=== PATIENT | female | born 1985 | race Caucasian/White ===

== ENCOUNTER 2019-01-08 12:03 | Emergency (ER) | payer BC ==
[2019-01-08] MEDS ORDERED: Ondansetron 4 MG/2 ML SDV IVPUSH ONE (12:08)
[2019-01-08] MEDS ORDERED: Morphine 2 MG/ML Syringe IVPUSH ONE ×3 (12:08→16:41)
[2019-01-08] MEDS: Sodium Chloride 0.9% 10 ML Syringe FLUSH PRN ×2 (12:18→16:59)
[2019-01-08 12:35] LABS: CHLORIDE,CL 103 mmol/L (98-107); SODIUM,NA 140 mmol/L (136-145)
[2019-01-08] MEDS ORDERED: Diatrizoate Meglumine/Diatrizoate Sodium 37% 30 ML Bottle PO ONE (12:57)
[2019-01-08] MEDS ORDERED: Sodium Chloride 0.9% 250 ML IV SCH (13:15)
[2019-01-08] MEDS ORDERED: Sodium Chloride 0.9% 1,000 ML IV SCH (13:15)
[2019-01-08] MEDS ORDERED: Iopamidol 612 MG/ML 100 ML Bottle IVPUSH ONE (14:00)
--- NOTE | 2019-01-08 15:54 | EDM.PDOC ---
ED HPI GENERAL MEDICAL PROBLEM - General Chief Complaint: Abdominal Pain Stated Complaint: abdominal pain Time Seen by Provider: 01/08/19 12:16 Source of Information: Reports: Patient History Limitations: Reports: No Limitations - History of Present Illness INITIAL COMMENTS - FREE TEXT/NARRATIVE: Patient comes to ER with complaint of sudden lower abdominal pain. Location is sometimes on lower left, sometimes lower right. Currently across both sides. Radiates to back. Started suddenly just prior to arrival when patient was working at [employer]. Patient has had very same issue "several times a year/twice a year" for a number of years. She reports developing abdominal pain, usually lower left quadrant, out of the blue. When it happens, she gets sweaty/has pain/frequent diarrhea/numb hands. Symptom usually last around an hour then improve over the course of the day. She says by the next day she feels pretty good. No specific triggers noted for episodes. No fevers/chills No bloody stools. No UTI complaints/hematuria. Says this episode is a bit worse than previous episodes. Only imaging performed in past was cardiac echo as patient sometimes has near- syncopal episodes associated with the abdominal pain. No CT of abdomen/pelvis. Significant stress. Trying to divorce . has been stalking her. Family notes patient has also been drinking more ETOH the past few months due to this. Also smokes 1/2PPD or so. Passing gas/having bowel movement sometimes helps the pain a bit. abdomen Pain Score (Numeric/FACES): 10 - Related Data Allergies Allergy/AdvReac Type Severity Reaction Status Date / Time No Known Allergies Allergy Verified 01/08/19 12:05 Home Meds: Home Meds traMADol [Ultram] 50 mg PO Q4H PRN #10 tab 01/08/19 [Rx] Past Medical History Cardiovascular History: Reports: Syncope Gastrointestinal History: Reports: Other (See Below) Other Gastrointestinal History: Recurrent episodes: 2x/year episodes of abdominal pain with diarrhea. - Past Surgical History Female Surgical History: Reports: Tubal Ligation Social & Family History - Tobacco Use Smoking Status *Q: Current Every Day Smoker Years of Tobacco use: 15 Packs/Tins Daily: 1 Used Tobacco, but Quit: No Smoking Cessation Information Provided To Patient: Patient Refused - Caffeine Use Caffeine Use: Reports: Coffee, Soda - Alcohol Use Days Per Week of Alcohol Use: 2 Number of Drinks Per Day: 3 Total Drinks Per Week: 6 - Recreational Drug Use Recreational Drug Use: No ED ROS GENERAL - Review of Systems Review Of Systems: See Below Constitutional: Reports: Diaphoresis, Decreased Appetite. Denies: Fever, Malaise, Weakness, Fatigue, Weight Loss, Weight Gain HEENT: Reports: No Symptoms Respiratory: Reports: No Symptoms Cardiovascular: Reports: Other (sometimes feels like she might pass out from the abdominal pain. ). Denies: Chest Pain, Dyspnea on Exertion, Edema, Palpitations GI/Abdominal: Reports: Abdominal Pain, Diarrhea, Decreased Appetite, Nausea. Denies: Black Stool, Bloody Stool, Difficulty Swallowing, Distension, Hematemesis, Hematochezia, Mucous in Stool, Vomiting : Reports: No Symptoms Musculoskeletal: Reports: No Symptoms Skin: Reports: No Symptoms Neurological: Reports: No Symptoms Psychiatric: Reports: No Symptoms ED EXAM, GENERAL - Physical Exam Exam: See Below Exam Limited By: No Limitations General Appearance: Alert, No Apparent Distress, Moderate Distress Eye Exam: Bilateral Eye: EOMI, PERRL Ears: Normal External Exam Nose: No: Nasal Deformity, Nasal Swelling, Nasal Drainage Throat/Mouth: Normal Lips, Normal Voice, No Airway Compromise Head: Atraumatic, Normocephalic Neck: Normal Inspection, Supple, Non-Tender, Full Range of Motion Respiratory/Chest: No Respiratory Distress, Lungs Clear, Normal Breath Sounds, No Accessory Muscle Use, Chest Non-Tender Cardiovascular: Normal Peripheral Pulses, Regular Rate, Rhythm, No Edema, No Murmur Peripheral Pulses: 2+: Radial (L), Radial (R) GI/Abdominal: Normal Bowel Sounds, No Distention, No Mass, Guarding, Tender ( diffusely, more so in lower 1/2 abdomen). No: Rigid, Rebound (Female) Exam: Deferred Rectal (Female) Exam: Deferred Back Exam: Normal Inspection, Full Range of Motion. No: CVA Tenderness (L), CVA Tenderness (R) Extremities: Normal Inspection, Normal Range of Motion, Non-Tender, No Pedal Edema, Normal Capillary Refill Neurological: Alert, Oriented, Normal Cognition, Normal Gait, No Motor/Sensory Deficits Psychiatric: Anxious Skin Exam: Warm, Dry, Intact, Normal Color Course - Vital Signs Last Recorded V/S: Last Vital Signs Temp 36.3 C 01/08/19 13:20 Pulse 64 01/08/19 13:20 Resp 20 01/08/19 13:20 BP 116/76 01/08/19 13:20 Pulse Ox 99 01/08/19 13:20 - Orders/Labs/Meds Orders: Active Orders 24 hr Category Date Time Status Peripheral IV Care [RC] . DIRECTED Care 01/08/19 12:08 Active Abdomen 2V AP Flat Upright [CR] Stat Exams 01/08/19 12:07 Ordered Abdomen Pelvis w Cont [CT] Stat Exams 01/08/19 12:52 Ordered ETHANOL BLOOD MEDICAL [CHEM] Routine Lab 01/08/19 16:22 Ordered UA W/MICROSCOPIC [URIN] Stat Lab 01/08/19 12:05 Ordered Sodium Chloride 0.9% [Normal Saline] 1,000 ml Med 01/08/19 13:15 Active IV BOLUS Sodium Chloride 0.9% [Saline Flush] Med 01/08/19 12:08 Active 10 ml FLUSH ASDIRECTED PRN Peripheral IV Insertion Adult [OM.PC] Routine Oth 01/08/19 12:08 Ordered Medication Orders Sodium Chloride (Normal Saline) 1,000 mls @ 999 mls/hr IV BOLUS MARY Last Admin: 01/08/19 13:16 Dose: 999 mls/hr Sodium Chloride (Saline Flush) 10 ml FLUSH ASDIRECTED PRN PRN Reason: Keep Vein Open Last Admin: 01/08/19 12:18 Dose: 10 ml Labs: Laboratory Tests 01/08/19 01/08/19 01/08/19 Range/Units 12:10 12:10 12:10 WBC 9.3 (4.0-10.2) K/uL RBC 4.21 (3.77-5.09) M/uL Hgb 13.5 (11.7-15.5) g/dL Hct 39.6 (34.0-46.0) % MCV 94.1 D (84.0-98.0) fL MCH 32.1 (28.2-33.3) pg MCHC 34.1 (31.7-36.0) g/dL RDW 11.7 (11.2-14.1) % Plt Count 341 D (150-350) K/uL Neut % (Auto) 72.6 (45.0-80.0) % Lymph % (Auto) 17.3 (10.0-50.0) % Bill[place] % (Auto) 7.8 (2.0-14.0) % Eos % (Auto) 2.1 (0.0-5.0) % Baso % (Auto) 0.2 (0.0-2.0) % Neut # (Auto) 6.75 (1.40-7.00) K/uL Lymph # (Auto) 1.61 (0.50-3.50) K/uL Bill[place] # (Auto) 0.73 (0.00-1.00) K/uL Eos # (Auto) 0.20 (0.00-0.50) K/uL Baso # (Auto) 0.02 (0.00-0.20) K/uL Sodium 140 (136-145) mmol/L Potassium 3.7 (3.5-5.1) mmol/L Chloride 103 (98-107) mmol/L Carbon Dioxide 24.1 (21.0-32.0) mmol/L BUN 19 H (7-18) mg/dL Creatinine 0.66 (0.51-1.17) mg/dL Est Cr Clr Drug Dosing TNP Estimated GFR (MDRD) > 60 mL/min Glucose 116 H (74-106) mg/dL Lactic Acid 1.4 (0.4-2.0) mmol/L Calcium 9.5 (8.5-10.1) mg/dL Total Bilirubin 0.4 (0.2-1.0) mg/dL AST 21 (15-37) U/L ALT 29 (12-78) U/L Alkaline Phosphatase 75 (46-116) IU/L Total Protein 7.1 (6.4-8.2) g/dL Albumin 3.9 (3.4-5.0) g/dL Meds: Medications Generic Name Dose Route Start Last Admin Trade Name Freq PRN Reason Stop Dose Admin Sodium Chloride 1,000 mls @ 999 mls/hr 01/08/19 13:15 01/08/19 13:16 Normal Saline IV 999 mls/hr BOLUS MARY Administration Sodium Chloride 10 ml 01/08/19 12:08 01/08/19 12:18 Saline Flush FLUSH 10 ml ASDIRECTED PRN Administration Keep Vein Open Discontinued Medications Generic Name Dose Route Start Last Admin Trade Name Freq PRN Reason Stop Dose Admin Diatrizoate Meglum/Diatrizoate Sod 30 ml 01/08/19 12:57 01/08/19 14:25 Gastrografin 37% PO 01/08/19 12:58 30 ml ONETIME ONE Administration Iopamidol 100 ml 01/08/19 14:00 01/08/19 14:25 Isovue-300 (61%) IVPUSH 01/08/19 14:01 100 ml ONETIME ONE Administration Morphine Sulfate 2 mg 01/08/19 12:08 01/08/19 12:16 Morphine IVPUSH 01/08/19 12:09 2 mg ONETIME ONE Administration Morphine Sulfate 4 mg 01/08/19 12:54 Morphine IVPUSH 01/08/19 12:55 ONETIME ONE Ondansetron HCl 4 mg 01/08/19 12:08 01/08/19 12:16 Zofran IVPUSH 01/08/19 12:09 4 mg ONETIME ONE Administration - Radiology Interpretation Free Text/Narrative:: Plain films of abdomen showed mild dilation small bowel loop on left, no unusual air/fluid levels or air under diaphragm. CT Results Date: 01/08/19 CT Results Time: 15:19 (Possible colitis dscending and sigmoid colon. Also noted hepatomegaly and 2mm middle lobe nodule. 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 ) - Re-Assessments/Exams Free Text/Narrative Re-Assessment/Exam: Patient's pain and BP improved s/p morphine, zofran, and fluid bolus. WBC normal. Lactic acid normal. CBC/Chem overall unremarkable. CT of abdomen performed with results as noted above. Changes suggestive of colitis noted by Radiology. Discussed results with patient. Based on patient's history of similar self- limited episodes in past complaint is suggestive of inflammatory bowel disease. Given lack of fever/white count and history of quick recovery from episodes ( patient already feeling like this episode is improving) no antibiotics indicated at this time. Antibiotics were discussed with patient however, and she declined them. She also declined a second liter of NS IV. Recommended that she go on clear liquid diet until symptoms resolve. Work slip given for today and tomorrow. Patient instructed to follow up at clinic and discuss referral for colonoscopy for further evaluation. Also recommended no ETOH given her increased usage of it as stress reliever and the hepatomegaly. She is also to review if lung nodule referral will be needed during visit with primary provider. Precautions reviewed prior to discharge. To return to ER for reevaluation of problems worsen. Departure - Departure Time of Disposition: 15:55 Disposition: Home, Self-Care 01 Condition: Good Clinical Impression: Colitis - Discharge Information *PRESCRIPTION DRUG MONITORING PROGRAM REVIEWED*: Not Applicable *COPY OF PRESCRIPTION DRUG MONITORING REPORT IN PATIENT CATHIE: Not Applicable Prescriptions: traMADol [Ultram] 50 mg PO Q4H PRN #10 tab PRN Reason: Pain Instructions: Colitis Referrals: Ashley Alamo, FR[employer] OF HOUSE MANAGER [Primary Care Provider] - Forms: ED Department Discharge Additional Instructions: Home/rest. 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 Follow up tomorrow for recheck if not significantly better. Follow up in ER if you have sudden worsening. Make appointment with clinic to discuss having colonoscopy to better look at what is going on. It may be a good way to figure out what is causing the intermittent colitis symptoms that you have been experiencing over the years. Also discuss lung nodule. If you are at low risk for malignancy, no follow up scan will then be required. Clear liquids for rest of today is recommended. Avoid alcohol as we discussed! Your liver is enlarged. Follow up with your primary provider for this. OK to take Tramadol one tablet every 4-6 hours for pain. - My Orders Last 24 Hours: My Active Orders 01/08/19 12:05 UA W/MICROSCOPIC [URIN] Stat 01/08/19 12:07 Abdomen 2V AP Flat Upright [CR] Stat 01/08/19 12:08 Peripheral IV Care [RC] . DIRECTED Sodium Chloride 0.9% [Saline Flush] 10 ml FLUSH ASDIRECTED PRN Peripheral IV Insertion Adult [OM.PC] Routine 01/08/19 12:52 Abdomen Pelvis w Cont [CT] Stat 01/08/19 13:15 Sodium Chloride 0.9% [Normal Saline] 1,000 ml IV BOLUS 01/08/19 16:22 ETHANOL BLOOD MEDICAL [CHEM] Routine - Assessment/Plan Last 24 Hours: My Active Orders 01/08/19 12:05 UA W/MICROSCOPIC [URIN] Stat 01/08/19 12:07 Abdomen 2V AP Flat Upright [CR] Stat 01/08/19 12:08 Peripheral IV Care [RC] . DIRECTED Sodium Chloride 0.9% [Saline Flush] 10 ml FLUSH ASDIRECTED PRN Peripheral IV Insertion Adult [OM.PC] Routine 01/08/19 12:52 Abdomen Pelvis w Cont [CT] Stat 01/08/19 13:15 Sodium Chloride 0.9% [Normal Saline] 1,000 ml IV BOLUS 01/08/19 16:22 ETHANOL BLOOD MEDICAL [CHEM] Routine
== END 2019-01-08 17:05 | disposition home or self-care (01) ==
LOC: LL.ED 12:03
DX: K52.9 Noninfective gastroenteritis and colitis, unspecified (principal); F17.210 Nicotine dependence, cigarettes, uncomplicated
CPT/HCPCS: 36415; 74019; 74177; 80053; 81001; 83605; 85025; 96361; 96374; 96375; 96376; 99284-25; G0480; J2270; J2405; J7030; Q9963; Q9967

== ENCOUNTER → 2019-03-29 | Day surgery (SDC) | payer BC ==
[~2019-03-29] MED LIST: Lactated Ringers 1,000 ML IV SCH; Midazolam 1 MG/ML 2 ML SDV ONE; Propofol 200 MG/20 ML SDV ONE; Sodium Chloride 0.9% 10 ML Syringe FLUSH PRN
--- NOTE | 2019-03-29 10:57 | PCM.PN ---
- General Info Date of Service: 03/29/19 - Review of Systems Systems Review Comment:: 3-year-old female presents today for colonoscopy. She has been having episodes of diarrhea and diaphoresis. These are increasing in frequency. Etiology is unexplained. I have discussed the proposed colonoscopy with the patient. Indications and risks reviewed. She agrees to proceed. Her recent history and physical is reviewed and no significant changes are noted. - Patient Data Vitals - Most Recent: Last Vital Signs Temp 98.9 F 03/29/19 10:10 Pulse 87 03/29/19 10:10 Resp 20 03/29/19 10:10 BP 113/64 03/29/19 10:10 Pulse Ox 100 03/29/19 10:10 Weight - Most Recent: 61.235 kg Med Orders - Current: Current Medications Lactated Ringer's (Ringers, Lactated) 1,000 mls @ 125 mls/hr IV ASDIRECTED MARY Last Admin: 03/29/19 10:19 Dose: 125 mls/hr Sodium Chloride (Saline Flush) 10 ml FLUSH ASDIRECTED PRN PRN Reason: Keep Vein Open Discontinued Medications Midazolam HCl (Versed 1 Mg/Ml) Confirm Administered Dose 2 mg .ROUTE .STK-MED ONE Stop: 03/29/19 08:36 Propofol (Diprivan 20 Ml) Confirm Administered Dose 400 mg .ROUTE .STK-MED ONE Stop: 03/29/19 08:36 Sepsis Event Note - Focused Exam Vital Signs: Vital Signs Temp Pulse Resp BP Pulse Ox 03/29/19 10:10 98.9 F 87 20 113/64 100 Date Exam was Performed: 03/29/19 Time Exam was Performed: 10:55 - Problem List Review Problem List Initiated/Reviewed/Updated: Yes - Assessment Assessment:: change in bowel habits - Plan Plan:: colonoscopy
--- NOTE | 2019-03-29 12:11 | PCM.OPNOTE ---
- General Post-Op/Procedure Note Date of Surgery/Procedure: 03/29/19 Operative Procedure(s): Colonoscopy with Polypectomy and Biopsy Findings: Transverse colon polyp Colon otherwise appears normal although very tortuous Pre Op Diagnosis: Change in bowel habits Post-Op Diagnosis: Colon Polyp Anesthesia Technique: MAC Primary Surgeon: Pedro Pablo Cruz Pathology: Colon polyp Biopsies of colon mucosa EBL in mLs: 2 Complications: None Condition: Good
--- NOTE | 2019-03-29 14:02 | OR ---
Date of Procedure: 03/29/2019 PREOPERATIVE DIAGNOSIS: Change in bowel habits. POSTOPERATIVE DIAGNOSIS: Transverse colon polyp. OPERATIONS PERFORMED: Colonoscopy with polypectomy and biopsy. INDICATIONS FOR SURGERY: This 33-year-old female has been having periodic episodes of diarrhea and diaphoresis. These are coming more frequently and she is referred for colonoscopy. FINDINGS: The patient's colon mucosa appears normal. There is no visible hyperemia or other visible signs of inflammation or other abnormalities in the colon mucosa. The colon is markedly tortuous and somewhat patulous. There is a single polyp noted in the mid transverse colon. This is a semipedunculated polyp of 7 mm in size. The exam otherwise appeared normal. PROCEDURE IN DETAIL: The patient was taken to the operating room. She was given intravenous sedation, and with her in the left lateral decubitus position, digital rectal exam was performed. No rectal masses were noted. The Olympus colonoscope was inserted into the rectum. Retroflexed examination of the rectal canal was performed. The scope was then carefully advanced under direct visualization through the entire length of the colon until the cecum was reached. Cecal acquisition was confirmed by noting the normal internal cecal anatomy including the appendiceal orifice and ileocecal valve. With the tortuosity of the colon, reaching the cecum was somewhat difficult. This did require careful persistent manipulation, hand pressure, and moving the patient to the supine position, but eventually the cecum was able to be adequately visualized. After the this was performed, the scope was then slowly withdrawn sequentially re-examining the colonic segments. During insertion of the scope, a polyp was identified in the mid transverse colon. This was removed with a cautery snare and retrieved into a polyp trap. During withdrawal of the scope, random biopsies of the colon mucosa are taken to further investigate the patient's symptoms. After the entire colon and rectum had been carefully examined, the scope was removed, and the patient was taken from the operating room in satisfactory condition. ESTIMATED BLOOD LOSS: 2 mL. COMPLICATIONS: None. PROGNOSIS: Good. DL Cruz MD /[id number]
== END | disposition home or self-care (01) ==
LOC: LL.SDS 09:52
PROVIDERS: ATTEND Surgery
DX: D12.3 Benign neoplasm of transverse colon (principal); K52.9 Noninfective gastroenteritis and colitis, unspecified; K63.89 Other specified diseases of intestine; Q43.8 Other specified congenital malformations of intestine; F17.210 Nicotine dependence, cigarettes, uncomplicated
CPT/HCPCS: 45385; J2250; J2704; J7120

== ENCOUNTER 2021-10-05 06:08 | Emergency (ER) | payer BC ==
[2021-10-05] MEDS ORDERED: HYDROmorphone 0.5 MG/0.5 ML Syringe IVPUSH ONE ×2 (06:27→06:42)
[2021-10-05] MEDS ORDERED: Ondansetron 4 MG/2 ML SDV IVPUSH ONE (06:28)
[2021-10-05] MEDS ORDERED: Ondansetron 4 MG/2 ML SDV ONE (06:29)
[2021-10-05] MEDS ORDERED: Ketorolac 15 MG/ML SDV IVPUSH ONE (06:41)
[2021-10-05] MEDS ORDERED: Sodium Chloride 0.9% 1,000 ML IV ONE (06:42)
[2021-10-05] MEDS ORDERED: Ketorolac 15 MG/ML SDV ONE (06:43)
[2021-10-05 06:55] LABS: ANION GAP 12.4 meq/L (7-15)
== END 2021-10-05 09:07 | disposition home or self-care (01) ==
LOC: LL.ED 06:08
DX: N13.2 Hydronephrosis with renal and ureteral calculous obstruction (principal)
CPT/HCPCS: 36415; 74176; 80048; 81001; 81025; 85025; 87086; 96374; 96375; 99284; 99284-25; J1170; J1885; J2405; J7030